=== PATIENT | female | born 1950 | race African-American/Black ===

== ENCOUNTER 2021-10-29 09:54 | Inpatient (IN) ==
[2021-10-29 10:52] LABS: Basophils % 0.4 % (0.0-0.8); Eosinophils # 0.1 10*3/uL (0.0-0.87); Eosinophils % 0.9 % (0.00-10.9); Hematocrit 42.4 VOL% (35.7-47.0); Hemoglobin 13.4 GM/DL (12.0-16.0); Immature Granulocytes % 0.4 %; Immature Granulocytes Absolute 0.03 #; Lymphocytes # 1.6 10*3/uL (1.4-4.0); Lymphocytes % 22.6 % (21.3-54.2); Mean Corpuscular HGB Conc 31.6 GM/DL (32-36); Mean Platelet Volume 8.9 FL (9.6-12.0); Monocytes % 4.5 % (1.7-12.7); Neutrophils % 71.2 % (38.7-73.9); Platelet Count 317 T/CUMM (130-400); Red Blood Count 4.66 MC/CUMM (3.8-5.5); Red Cell Distribution Width 13.5 % (9.3-17.3); White Blood Count 6.9 T/CUMM (4-12)
[2021-10-29 11:10] LABS: PT Patient Result 11.2 SECS (10.5-12.0); Partial Thromboplastin Time 27.9 SECS (23.8-32.1)
[2021-10-29 11:18] LABS: Albumin 3.2 G/DL (3.4-5.0); Bilirubin,Total 0.8 MG/DL (0.20-1.00); Calcium 9.6 MG/DL (8.5-10.1); Osmolality,Calculated 291.6 MOS/KG (273-304); Potassium 3.2 MMOL/L (3.5-5.1); Total Protein 8.8 G/DL (6.4-8.2)
[2021-10-29 11:26] LABS: ABG Base Excess 3.9 MMOL/L (-2.5-2.5); ABG HCO3 27.8 MMOL/L (20-26); ABG PCO2 39.9 MM HG (35-48); ABG PH 7.454 (7.35-7.45)
[2021-10-29] MEDS ORDERED: ONDANSETRON 4 MG/2 ML VIAL IV PRN (16:22)
[2021-10-29] MEDS ORDERED: DEXTROSE 10% 250 ML BAG IV PRN (16:22)
[2021-10-29] MEDS ORDERED: GLUCAGON 1 MG VIAL IM PRN (16:22)
[2021-10-29] MEDS ORDERED: AZITHROMYCIN INJ 500 MG in SODIUM CHLORIDE 0.9% 250 ML IV ONE (16:59)
[2021-10-29] MEDS ORDERED: ENOXAPARIN 30 MG/0.3 ML SYRINGE SUBCUT SCH (17:00)
[2021-10-29] MEDS ORDERED: POTASSIUM CHLORIDE RIDER 10 MEQ/100 ML PREMIX IV PRN (17:20)
[2021-10-29 17:29] LABS: Ferritin 164.6 ng/mL (8-252)
[2021-10-29] MEDS: DEXT 5% NACL 0.9% KCL 20 MEQ 20 MEQ/1,000 ML BAG IV SCH (18:50)
[2021-10-29] MEDS: HEPARIN DRIP 25,000 UNITS/500 ML PREMIX IV SCH (19:15)
[2021-10-29] MEDS ORDERED: ENOXAPARIN 40 MG/0.4 ML SYRINGE SUBCUT SCH (21:00)
[2021-10-29 21:28] LABS: Bilirubin,Urine Negative (Negative); Blood, Urine Negative (Negative); Glucose,Urine (UA) Negative (Negative); Ketones,Urine Negative (Negative); Nitrite,Urine Negative (Negative); Protein,Urine Negative; RBC,Urine 4 /HPF (0-4); Urine Appearance CLEAR (Clear); Urine Color Yellow (Yellow)
[2021-10-29 21:29] LABS: Urine Specific Gravity > 1.060 (1.001-1.035)
[2021-10-29] MEDS: FAMOTIDINE 20 MG TABLET PO SCH (22:07)
[2021-10-29] MEDS: ASCORBIC ACID 500 MG TABLET PO SCH (22:07)
[2021-10-30 06:20] LABS: Basophils % 0.6 % (0.0-0.8); Eosinophils # 0.1 10*3/uL (0.0-0.87); Eosinophils % 1.5 % (0.00-10.9); Hematocrit 39.1 VOL% (35.7-47.0); Hemoglobin 12.3 GM/DL (12.0-16.0); Immature Granulocytes % 0.4 %; Immature Granulocytes Absolute 0.02 #; Lymphocytes % 38.6 % (21.3-54.2); Mean Corpuscular HGB Conc 31.5 GM/DL (32-36); Mean Corpuscular Volume 90.9 FL (87-102); Mean Platelet Volume 8.8 FL (9.6-12.0); Monocytes % 6.3 % (1.7-12.7); Neutrophils % 52.6 % (38.7-73.9); Platelet Count 314 T/CUMM (130-400); Red Cell Distribution Width 13.5 % (9.3-17.3); White Blood Count 5.2 T/CUMM (4-12)
[2021-10-30 06:39] LABS: Ferritin 189.1 ng/mL (8-252)
[2021-10-30 06:44] LABS: Calcium 8.6 MG/DL (8.5-10.1); Potassium 3.5 MMOL/L (3.5-5.1); Thyroid Stimulating Hormone 1.12 uIU/ml (0.358-3.74)
[2021-10-30] MEDS ORDERED: DEXAMETHASONE 4 MG/1 ML VIAL IV SCH (09:00)
[2021-10-30] MEDS: ASCORBIC ACID 500 MG TABLET PO SCH ×2 (09:36→22:15)
[2021-10-30] MEDS: ZINC GLUCONATE 50 MG TABLET PO SCH (09:36)
[2021-10-30] MEDS: CHOLECALCIFEROL 1,000 UNIT TABLET PO SCH (09:36)
[2021-10-30] MEDS: FAMOTIDINE 20 MG TABLET PO SCH ×2 (09:36→22:15)
[2021-10-30] MEDS: HEPARIN DRIP 25,000 UNITS/500 ML PREMIX IV SCH (17:30)
[2021-10-30] MEDS: DEXT 5% NACL 0.9% KCL 20 MEQ 20 MEQ/1,000 ML BAG IV SCH (23:45)
[2021-10-31] MEDS: DEXT 5% NACL 0.9% KCL 20 MEQ 20 MEQ/1,000 ML BAG IV SCH ×2 (03:46→10:36)
[2021-10-31] MEDS: ASCORBIC ACID 500 MG TABLET PO SCH (10:04)
[2021-10-31] MEDS: CHOLECALCIFEROL 1,000 UNIT TABLET PO SCH (10:04)
[2021-10-31] MEDS: FAMOTIDINE 20 MG TABLET PO SCH (10:04)
[2021-10-31] MEDS: ZINC GLUCONATE 50 MG TABLET PO SCH (10:04)
[2021-10-31 12:37] VITALS: BP 146/78
[2021-10-31] MEDS ORDERED: RIVAROXABAN 15 MG TABLET PO SCH (17:00)
== END 2021-10-31 16:22 | DRG 177 ==
LOC: N.ED 09:54 → N.EDINP 09:54 → SUATTDRO 16:22 → N.TELES 20:43
PROVIDERS: ADMIT Hospitalist; ATTEND Internal Medicine Geriatric Medicine